=== PATIENT | male | born 1985 | race Caucasian/White ===

== ENCOUNTER 2020-07-20 15:03 | Emergency (ER) | payer BC ==
[~2020-07-20] VITALS: Ht 175.3 cm; Wt 91.7 kg
[2020-07-20] MEDS ORDERED: CYCL-1 PO (17:14)
[2020-07-20] MEDS ORDERED: ketorolac trometh inj. 60 MG/2 ML VIAL IM ONE (17:15)
[2020-07-20 17:26] VITALS: BP 140/96
== END 2020-07-20 17:29 | disposition home or self-care (01) ==
LOC: ER 15:03
DX: S39.012A Strain of muscle, fascia and tendon of lower back, initial encounter (principal); R00.2 Palpitations; R06.02 Shortness of breath; Z72.89 Other problems related to lifestyle; Z79.899 Other long term (current) drug therapy; V87.7XXA Person injured in collision between other specified motor vehicles (traffic), initial encounter; Y93.89 Activity, other specified; Y92.89 Other specified places as the place of occurrence of the external cause; Y99.8 Other external cause status
CPT/HCPCS: 93005; 96372; 99283; J1885